=== PATIENT | male | born 1960 | race Caucasian/White ===

== ENCOUNTER 2022-03-24 20:50 | Emergency (ER) | payer BC ==
[~2022-03-24 20:50] MED LIST: ASPIRIN81 MG PO; DIOVAN320 MG PO; ELIQUIS5 MG PO; FENOFIBRATE160 MG PO; GLUCOPHAGE1000 MG PO; GLUCOTROL XL 22.5 MG PO; GLUCOTROL5 MG PO; HYDROCHLOROTHIA25 MG PO; LOPRESSOR 25 MG25 MG PO; MOBIC15 MG PO; PRILOSEC OTC20 MG PO; SINGULAIR10 MG PO
== END 2022-03-25 00:09 | disposition home or self-care (01) ==
LOC: ER1 20:50
DX: S02.85XA Fracture of orbit, unspecified, initial encounter for closed fracture (principal); S01.112A Laceration without foreign body of left eyelid and periocular area, initial encounter; I11.9 Hypertensive heart disease without heart failure; E11.9 Type 2 diabetes mellitus without complications; I48.91 Unspecified atrial fibrillation; Z79.01 Long term (current) use of anticoagulants; W01.10XA Fall on same level from slipping, tripping and stumbling with subsequent striking against unspecified object, initial encounter; Y92.009 Unspecified place in unspecified non-institutional (private) residence as the place of occurrence of the external cause
CPT/HCPCS: 12011; 70450; 70486; 99283